=== PATIENT | female | born 1960 | race Caucasian/White ===

== ENCOUNTER 2016-07-14 10:43 | Emergency (ER) | END 2016-07-14 13:59 | disposition home or self-care (01) | CPT/HCPCS: 71020; 94640; 99283; A9270; J7613 ==

== ENCOUNTER 2017-02-05 10:23 | Outpatient (CLI) | payer OTHER ==
--- NOTE | 2017-02-06 15:23 | Mammography Report ---
DIGITAL SCREENING MAMMOGRAM: 02/05/2017 CLINICAL INDICATION: A 56-year-old, for screening. COMPARISON: 03/2015, 01/2013, 01/2012, 02/2008. TECHNIQUE: Routine CC and MLO projections were obtained of the breasts. Bilateral laterally exaggera virgen craniocaudal views. FINDINGS: Scattered fibroglandular tissue is present within the breasts. There are no dominant livan s, suspicious microcalcifications, or secondary signs of malignancy. In comparison to the previous st udies, there are no significant changes. ASSESSMENT: NO MAMMOGRAPHIC EVIDENCE OF MALIGNANCY. NO SIGNIFICANT INTERVAL CHANGES. RECOMMENDATION: Screening mammography is recommended annually. BIRADS category 1 - negative. STANDARD QUALIFYING STATEMENTS 1. This examination was reviewed with the aid of Computed-Aided Detection (CAD). 2. A negative or benign imaging report should not delay biopsy if clinically suspicious findings are present. Consider surgical consultation if warranted. More than 5% of cancers are not identified by i maging. 3. Dense breasts may obscure an underlying neoplasm. JOB #: [id number] EXT JOB #:[id number]
== END 2017-02-05 10:24 | disposition home or self-care (01) ==
LOC: DI.N 10:23
PROVIDERS: ATTEND Family Medicine
DX: Z12.31 Encounter for screening mammogram for malignant neoplasm of breast (principal)
CPT/HCPCS: 77067

== ENCOUNTER 2017-02-23 10:37 | Outpatient (CLI) | payer OTHER | END 2017-02-23 10:38 | disposition home or self-care (01) | LOC: LAB 10:37 | PROVIDERS: ATTEND Obstetrics & Gynecology | DX: Z11.3 Encounter for screening for infections with a predominantly sexual mode of transmission (principal) | CPT/HCPCS: 36415; 86780; 86803; 87340; 87389 ==

== ENCOUNTER 2017-04-07 09:25 | Day surgery (SDC) | payer OTHER ==
[2017-04-07] MEDS ORDERED: LACTATED RINGERS 1,000 ML IV ONE (09:35)
[2017-04-07] MEDS ORDERED: MIDAZOLAM 2 MG/2 ML VIAL IVP ONE (10:04)
[2017-04-07] MEDS ORDERED: fentaNYL 100 MCG/2 ML VIAL IVP ONE (10:04)
[2017-04-07] MEDS ORDERED: GLUCAGON 1 MG/ML VIAL IM ONE (10:04)
[2017-04-07 11:25] VITALS: BP 98/48
== END 2017-04-07 09:26 | disposition home or self-care (01) ==
LOC: SDS 09:25
PROVIDERS: ATTEND Surgery
PROC: 0DBP8ZX Excision of Rectum, Via Natural or Artificial Opening Endoscopic, Diagnostic (ICD-10-PCS; principal; 2017-04-07 10:30)
DX: D12.0 Benign neoplasm of cecum (principal); K62.1 Rectal polyp; Z80.0 Family history of malignant neoplasm of digestive organs; Z87.891 Personal history of nicotine dependence
CPT/HCPCS: 45384; J7120

== ENCOUNTER 2018-03-25 15:51 | Outpatient (CLI) | payer BC, OTHER ==
--- NOTE | 2018-03-26 09:21 | Mammography Report ---
Reason: SCREENING MAMMO Procedure Date: 03/25/2018 Accession Number: [id number] / [id number] Procedure: KATELIN - Screening Mammo Dig Bilat CPT Code: FULL RESULT: EXAM: Screening Mammo Dig Bilat DATE: 03/25/2018 4:09 PM CLINICAL HISTORY: Screening mammogram TECHNIQUE: Bilateral CC and MLO views were obtained. COMPARISON: Mammogram 02/05/2017 FINDINGS: There are scattered fibroglandular densities. No suspicious masses, clustered microcalcifications, or regions of architectural distortion are identified. IMPRESSION: BI-RADS Category 1. Negative. RECOMMENDATION: Routine annual screening unless otherwise clinically indicated. BIRADS CATEGORY 1: Negative STANDARD QUALIFYING STATEMENTS: 1. This examination was reviewed with the aid of Computer-Aided Detection (CAD). 2. A negative or benign imaging report should not delay biopsy if clinically suspicious findings are present. Consider surgical consultation if warrented. More than 5% of cancers are not identified by imaging. 3. Dense breasts may obscure an underlying neoplasm.
== END 2018-03-25 15:52 | disposition home or self-care (01) ==
LOC: DI 15:51
PROVIDERS: ATTEND Radiology Diagnostic Radiology
DX: Z12.31 Encounter for screening mammogram for malignant neoplasm of breast (principal)
CPT/HCPCS: 77067

== ENCOUNTER 2018-12-07 19:03 | Emergency (ER) | payer BC, OTHER ==
[2018-12-07 19:12] VITALS: BP 109/83
[2018-12-07] MEDS ORDERED: HYDROcod/ACETAM 5/325 MG TABLET PO STA (19:12)
[2018-12-07] MEDS ORDERED: BUFFERED LIDOCAINE 10 ML SYRINGE SUBQ STA (19:12)
[2018-12-07] MEDS ORDERED: TETANUS/DIPHTHERIA/PERTUSSIS 0.5 ML SYRINGE IM ONE (19:12)
--- NOTE | 2018-12-07 19:14 | ED Physician Documentation ---
PD HPI UPPER EXT INJURY - Stated complaint Stated Complaint: R PINKY INJ - Chief complaint Chief Complaint: Trauma Ext - History obtained from History obtained from: Patient - History of Present Illness Location: Other (Healthy 58-year-old woman was finishing up her run and tripped and fell. She injured her right pinky and left ribs. No head or neck injury. No loss of consciousness.) Review of Systems Constitutional: denies: Fever, Chills Cardiac: reports: Chest pain / pressure. denies: Palpitations Respiratory: reports: Reviewed and negative GI: reports: Reviewed and negative PD PAST MEDICAL HISTORY - Past Medical History Cardiovascular: None Respiratory: None Endocrine/Autoimmune: None GI: None : None HEENT: None Psych: None Musculoskeletal: None Derm: None - Past Surgical History General: Colonoscopy /CASING TIER: Tubal ligation, section HEENT: Tonsil/Adenoidectomy - Present Medications Home Medications: Ambulatory Orders Medication Instructions Recorded Confirmed SUMAtriptan [Imitrex] 25 mg PO ONCE 11/17/12 11/17/12 Zolpidem Tartrate [Ambien] 5 mg PO HS 11/17/12 11/17/12 guaiFENesin/CODEINE [Robitussin AC] 10 ml PO Q6H PRN #240 ml 07/14/16 Hydrocodone/Acetaminophen 1 - 2 each PO Q6H PRN #14 tablet 12/07/18 [Hydrocodon-Acetaminophen 5-325] - Allergies Allergies/Adverse Reactions: Allergies Allergy/AdvReac Type Severity Reaction Status Date / Time No Known Drug Allergies Allergy Verified 12/07/18 19:08 - Social History Does the pt smoke?: No Smoking Status: Never smoker Does the pt drink ETOH?: No Does the pt have substance abuse?: No - Immunizations Immunizations are current?: Yes PD ED PE NORMAL - Vitals Vital signs reviewed: Yes - General General: Alert and oriented X 3, No acute distress - HEENT HEENT: PERRL, EOMI - Neck Neck: Supple, no meningeal sign, No bony TTP - Cardiac Cardiac: RRR, No murmur - Respiratory Respiratory: No respiratory distress, Clear bilaterally - Abdomen Abdomen: Non tender - Extremities Extremities: Other (The right pinky is deformed medially consistent with a fracture of the proximal phalanx. Normal neurovascular function of the tip. There is a scrape on the right palm and left knee. No tenderness there. She has mild tenderness over the left lower anterior ribs.) - Neuro Neuro: Alert and oriented X 3, Normal speech Results - Vitals Vitals: Vital Signs - 24 hr 12/07/18 19:06 Temperature 36.8 C Heart Rate 84 Respiratory 16 Rate Blood Pressure 109/83 H O2 Saturation 97 Oxygen O2 Source Room air - Rads (name of study) L ribs and chest Radiology: EMP read contemporaneously (NAD) R hand Radiology: EMP read contemporaneously (Fracture of the proximal phalanx of the right fifth finger with some medial angulation. Note the x-ray was done prior to reduction.) Procedures - Splint (location) R pinky finger Splint applied by: Tech Type of splint: Metal foam finger splint Other: Patient tolerated well, No complications, Neurovascular intact - Reduction Body part reduced: Right, Finger Fracture or dislocation: Fracture dislocation Anesthesia: Digital block (with 2ml buffered lidocaine p hibiclens) Reduction aftercare: Alignment improved, Splint applied Departure - Departure Disposition: 01 Home, Self Care Clinical Impression: Finger fracture, right, Chest wall contusion Condition: Good Record reviewed to determine appropriate education?: Yes Instructions: ED Fx Finger Closed Follow-Up: [facility] [Provider Group] - Within 1 week Prescriptions: Hydrocodone/Acetaminophen [Hydrocodon-Acetaminophen 5-325] 1 - 2 each PO Q6H PRN #14 tablet PRN Reason: pain Comments: Keep the splint on and dry in the fingers elina taped as shown until you follow- up with orthopedic surgeons. Return for new or worsening symptoms. Do not drink or drive while taking narcotic pain medication. Note that many narcotic pain relievers also contain Tylenol/acetaminophen. Please ensure that your total dose of acetaminophen from all sources does not exceed 3 g (3000 mg) per day. You may get constipated while on this medication. Take a stool softener such as Colace twice a day while you are on it. Also add an mgvj-gqf-pdwqyfn laxative such as senna or MiraLAX on any day that you do not have a bowel movement. If you received a narcotic pain medication or sedative while in the emergency department, do not drive for the next 24 hours. Forms: Activity restrictions
--- NOTE | 2018-12-07 20:04 | XRAY Report ---
Reason: rib inj Procedure Date: 12/07/2018 Accession Number: [id number] / [id number] Procedure: XR - Ribs w/PA Chest LT CPT Code: FULL RESULT: EXAM: LEFT RIB RADIOGRAPHY EXAM DATE: 12/07/2018 07:38 PM. CLINICAL HISTORY: Fall. Left anterior rib injury. COMPARISON: CHEST 2 VIEW PA/LAT 07/14/2016 1:07 PM. TECHNIQUE: 1 view of the chest and 2 views of the ribs. FINDINGS: Bones: Normal. No fracture or bone lesion. Lungs: No focal opacities. No pneumothorax. No pleural effusions. Mediastinum: Heart and mediastinal contours are unremarkable. Other: None. IMPRESSION: Normal chest and rib radiography. RADIA
--- NOTE | 2018-12-07 20:07 | XRAY Report ---
Reason: hand inj Procedure Date: 12/07/2018 Accession Number: [id number] / [id number] Procedure: XR - Hand 2 View RT CPT Code: FULL RESULT: EXAM: RIGHT HAND RADIOGRAPHY EXAM DATE: 12/07/2018 07:38 PM. CLINICAL HISTORY: Fall. Right fifth digit pain and deformity. COMPARISON: None. TECHNIQUE: 3 views. FINDINGS: Bones: Mildly angulated mild displaced oblique shaft fracture of the fifth proximal phalanx. Joints: Normal. No subluxations. Soft Tissues: Associated soft tissue swelling. IMPRESSION: Mildly angulated mildly displaced oblique shaft fracture of the fifth proximal phalanx. RADIA
== END 2018-12-07 20:14 | disposition home or self-care (01) ==
LOC: ED 19:03
DX: S60.511A Abrasion of right hand, initial encounter (principal); S80.211A Abrasion, right knee, initial encounter; S62.616A Displaced fracture of proximal phalanx of right little finger, initial encounter for closed fracture; S20.211A Contusion of right front wall of thorax, initial encounter; W18.30XA Fall on same level, unspecified, initial encounter; Y93.02 Activity, running
CPT/HCPCS: 26725; 71101; 73120; 90471; 90715; 99283; A9270

== ENCOUNTER 2019-04-19 08:00 | Outpatient (CLI) | payer BC, OTHER ==
[2019-04-21 23:22] LABS: VARICELLA ZOSTER VIRUS IGM 0.13
== END 2019-04-19 23:59 | disposition home or self-care (01) ==
LOC: LAB.WCP 08:00
PROVIDERS: ATTEND Family Medicine
DX: R21 Rash and other nonspecific skin eruption (principal)
CPT/HCPCS: 36415; 86787

== ENCOUNTER → 2019-04-19 | Outpatient (CLI) | payer BC ==
--- NOTE | 2019-04-19 15:26 | XRAY Report ---
Reason: LOW BACK PAIN Procedure Date: 04/19/2019 Accession Number: [id number] / [id number] Procedure: WCP - Lumbar Spine 2 View CPT Code: FULL RESULT: EXAM: LUMBOSACRAL SPINE RADIOGRAPHY EXAM DATE: 04/19/2019 11:00 AM. CLINICAL HISTORY: Low back pain. COMPARISONS: CHEST 2 VIEW PA/LAT 07/14/2016 1:07 PM. TECHNIQUE: 3 views. FINDINGS: Alignment: Normal. No spondylolisthesis or scoliosis. Bones: Five lzp-aui-qnoizgx lumbar vertebral bodies are present. Minor compression deformity at T12 is suspected. Remainder of vertebral bodies appear relatively intact. Disks: There is minimal diffuse degenerative disk disease seen throughout the upper and lower aspects of the lumbar spine. Facets: There is minimal diffuse degenerative facet disease seen throughout the mid and lower aspect of the lumbar spine. Sacroiliac Joints: Unremarkable. Soft Tissues: Normal. The visualized bowel gas pattern is normal. IMPRESSION: Age-indeterminate minor T12 anterior compression fracture deformities suspected. RADIA
== END ==
LOC: DI.WCP 08:00 → EDSTATUS 12:31
PROVIDERS: ATTEND Family Medicine
DX: M54.5 Low back pain (principal)
CPT/HCPCS: 72100

== ENCOUNTER 2019-05-02 17:00 | Outpatient (CLI) | payer BC ==
--- NOTE | 2019-05-03 06:48 | CT Report ---
Reason: WEDGE COMPRESSION FRACTURE OF THORACIC VERTEBRA Procedure Date: 05/02/2019 Accession Number: [id number] / [id number] Procedure: CT - THORACIC SPINE WO CPT Code: FULL RESULT: EXAM: CT THORACIC SPINE WITHOUT CONTRAST EXAM DATE: 05/02/2019 05:31 PM. CLINICAL HISTORY: 59-year-old female. WEDGE COMPRESSION FRACTURE OF THORACIC VERTEBRA. COMPARISONS: Radiograph lumbar spine 04/19/2019 TECHNIQUE: Thin-section axial images were acquired of the thoracic spine from C7 to L1 without contrast. Post-processing: Coronal and sagittal reformats. Other: None. In accordance with CT protocol optimization, one or more of the following dose reduction techniques were utilized for this exam: automated exposure control, adjustment of mA and/or KV based on patient size, or use of iterative reconstructive technique. FINDINGS: Alignment: No scoliosis or spondylolisthesis. Bones: The bones are diffusely osteopenic. Redemonstration superior endplate compression fracture of the T12 vertebral body with maximal height loss centrally of 36%. No CT evidence of additional thoracic level fractures. Schmorl's nodes are seen involving the inferior endplate of T6, inferior endplate of T7, and inferior endplate of T8. Superior endplate of L2 demonstrates mild depression (series 7 image 46), may represent developing Schmorl's node versus small compression fracture. No significant bony central canal foraminal narrowing at any visualized level. Musculature: Normal. No fatty atrophy. Other: The visualized lungs, mediastinum, and abdominal cavity are unremarkable. IMPRESSION: 1. The bones are diffusely osteopenic. 2. Redemonstration superior endplate compression fracture of the T12 vertebral body with maximal height loss centrally of 36%. No CT evidence of additional thoracic level fractures. 3. Schmorl's nodes are seen involving the inferior endplate of T6, inferior endplate of T7, and inferior endplate of T8. 4. Superior endplate of L2 demonstrates mild depression (series 7 image 46), may represent developing Schmorl's node versus small developing compression fracture. 5. No significant bony central canal foraminal narrowing at any visualized level. RADIA
== END 2019-05-02 17:01 | disposition home or self-care (01) ==
LOC: DI 17:00
PROVIDERS: ATTEND Family Medicine
DX: M48.54XA Collapsed vertebra, not elsewhere classified, thoracic region, initial encounter for fracture (principal); M85.88 Other specified disorders of bone density and structure, other site; M51.44 Schmorl's nodes, thoracic region
CPT/HCPCS: 72128

== ENCOUNTER 2019-09-07 15:06 | Outpatient (CLI) | payer OTHER ==
--- NOTE | 2019-09-20 15:24 | Mammography Report ---
Reason: ROUTINE MAMMO Procedure Date: 09/07/2019 Accession Number: [id number] / [id number] Procedure: MGN - Screening Mammo w/Eloy CPT Code: Final Report FULL RESULT: EXAM: Screening Mammo w/Eloy DATE: 09/07/2019 3:59 PM CLINICAL HISTORY: Screening encounter. TECHNIQUE: (B) - Bilateral CC and MLO views were obtained. COMPARISON: 03/25/2018 through 01/19/2013. PARENCHYMAL PATTERN: (A) - The breast(s) demonstrate(s) scattered fibroglandular densities. FINDINGS: There are no suspicious masses, calcifications, or areas of distortion. IMPRESSION: Negative examination. BI-RADS category 1. RECOMMENDATION: (ANNUAL) - Recommend routine annual screening mammography. BI-RADS CATEGORY: (1) - Negative. STANDARD QUALIFYING STATEMENTS: 1. This examination was not reviewed with the aid of Computer-Aided Detection (CAD). 2. A negative or benign imaging report should not preclude biopsy if clinically suspicious findings are present. 3. Dense breasts may obscure an underlying neoplasm. 4. This examination was reviewed with the aid of 3D breast imaging (tomosynthesis).
== END 2019-09-07 15:07 | disposition home or self-care (01) ==
LOC: DI.N 15:06
DX: Z12.31 Encounter for screening mammogram for malignant neoplasm of breast (principal)
CPT/HCPCS: 77063; 77067

== ENCOUNTER 2019-10-27 10:47 | Outpatient (CLI) | payer OTHER ==
--- NOTE | 2019-10-27 11:29 | XRAY Report ---
Reason: ACUTE LOW BACK PAIN Procedure Date: 10/27/2019 Accession Number: [id number] / [id number] Procedure: WCP - Lumbar Spine 2 View CPT Code: Final Report FULL RESULT: EXAM: LUMBOSACRAL SPINE RADIOGRAPHY EXAM DATE: 10/27/2019 10:47 AM. CLINICAL HISTORY: ACUTE LOW BACK PAIN. COMPARISONS: LUMBAR SPINE 2 VIEW 04/19/2019 10:39 AM. TECHNIQUE: 3 views. FINDINGS: Alignment: Normal. No spondylolisthesis or scoliosis. Bones: Five gvy-hld-cfxyvcx lumbar vertebral bodies are present. Vertebral deformity of T12 with 20% anterior height loss, similar to prior study. Disks: Normal. Disk heights are maintained. Facets: Mild facet hypertrophy at L3-L4. Moderate facet hypertrophy at L4-L5 and L5-S1. Sacroiliac Joints: Unremarkable. Soft Tissues: Normal. The visualized bowel gas pattern is normal. IMPRESSION: 1. No radiographic evidence of acute abnormality. 2. Remote T12 compression fracture. 3. Moderate lower lumbar facet degenerative changes RADIA
--- NOTE | 2019-10-27 13:05 | XRAY Report ---
Reason: THORACIC VERTEBRA WEDGE COMPRESSION FRACTURE Procedure Date: 10/27/2019 Accession Number: [id number] / [id number] Procedure: WCP - Thoracic Spine 2 View CPT Code: Final Report FULL RESULT: EXAM: THORACIC SPINE RADIOGRAPHY EXAM DATE: 10/27/2019 10:47 AM. CLINICAL HISTORY: Thoracic vertebra wedge compression fracture. COMPARISON: THORACIC SPINE W/O 05/02/2019 5:30 PM. TECHNIQUE: 2 views. FINDINGS: Alignment: Normal. No spondylolisthesis or scoliosis. Stable appearance of a grade 2 superior wedge compression fracture at T12. No new thoracic vertebral body compressive fractures detected. No pathologic subluxation. Mild disk space narrowing in the mid thoracic spine. Stable anterior vertebral body bony bridging. No significant scoliosis or hyperkyphosis. IMPRESSION: Stable appearance of wedge compression fracture at T12. No new compressive fractures detected. RADIA
== END 2019-10-27 23:59 | disposition home or self-care (01) ==
LOC: DI.WCP 10:47
PROVIDERS: ATTEND Family Medicine
DX: S22.000D Wedge compression fracture of unspecified thoracic vertebra, subsequent encounter for fracture with routine healing (principal); M47.816 Spondylosis without myelopathy or radiculopathy, lumbar region; M47.817 Spondylosis without myelopathy or radiculopathy, lumbosacral region
CPT/HCPCS: 72070; 72100

== ENCOUNTER 2020-11-21 08:00 | Outpatient (CLI) | payer OTHER ==
[2020-11-21 12:18] LABS: BASOPHILS # (AUTO) 0.1 10^3/uL (0.0-0.1); BASOPHILS % (AUTO) 1.7 %; EOSINOPHILS # (AUTO) 0.2 10^3/uL (0.0-0.7); EOSINOPHILS % (AUTO) 4.1 %; HCT - HEMATOCRIT 39.4 % (37.0-47.0); HGB - HEMOGLOBIN 12.7 g/dL (12.0-16.0); LYMPHOCYTES # (AUTO) 1.7 10^3/uL (1.5-3.5); LYMPHOCYTES % (AUTO) 40.1 %; MEAN CORPUSCULAR HGB CONC 32.2 g/dL (32.0-36.0); MEAN CORPUSCULAR VOLUME 96.1 fL (81.0-99.0); MEAN PLATELET VOLUME 12.1 fL (7.9-10.8); MONOCYTES # (AUTO) 0.3 10^3/uL (0.0-1.0); MONOCYTES % (AUTO) 7.1 %; NEUTROPHILS # (AUTO) 1.9 10^3/uL (1.5-6.6); NEUTROPHILS % (AUTO) 46.8 %; PLT - PLATELET COUNT 268 10^3/uL (130-450); RED CELL DISTRIBUTION WIDTH 13.6 % (12.0-15.0); WHITE BLOOD COUNT 4.1 x10^3/uL (4.8-10.8)
[2020-11-21 12:29] LABS: ALBUMIN 4.3 g/dL (3.2-5.5); ALBUMIN/GLOBULIN RATIO 1.5 (1.0-2.2); ALKALINE PHOSPHATASE 67 IU/L (42-121); ALT ALANINE AMINOTRANSFERASE 18 IU/L (10-60); AST ASPARTATE AMINOTRANSFERASE 30 IU/L (10-42); BILIRUBIN,TOTAL 0.7 mg/dL (0.2-1.0); BUN - BLOOD UREA NITROGEN 18 mg/dL (6-20); CALCIUM 9.7 mg/dL (8.5-10.3); CARBON DIOXIDE - CO2 29 mmol/L (21-32); CHLORIDE 104 mmol/L (101-111); CHOL/HDL RATIO 2.5 (<4.4); CHOLESTEROL 209 mg/dL; CREATININE 0.8 mg/dL (0.4-1.0); GFR - MDRD 73 (>89); GLUCOSE 93 mg/dL (70-100); HDL CHOLESTEROL 84 mg/dL; LDL CHOLESTEROL,CALCULATED 116 mg/dL; LDL/HDL RATIO 1.4 (<4.4); POTASSIUM 4.1 mmol/L (3.5-5.0); SODIUM 142 mmol/L (135-145); TOTAL PROTEIN 7.1 g/dL (6.7-8.2); TRIGLYCERIDES 44 mg/dL; VLDL CHOLESTEROL 9 mg/dL
[2020-11-21 12:36] LABS: THYROID STIMULATING HORMONE 1.72 uIU/mL (0.34-5.60)
== END 2020-11-21 23:59 | disposition home or self-care (01) ==
LOC: LAB.WCP 08:00
PROVIDERS: ATTEND Family Medicine
DX: Z00.00 Encounter for general adult medical examination without abnormal findings (principal)
CPT/HCPCS: 36415; 80053; 80061; 83721; 84443; 85025

== ENCOUNTER 2021-06-01 08:00 | Outpatient (CLI) | payer OTHER | END 2021-06-01 23:59 | disposition home or self-care (01) | LOC: LAB.N 08:00 | PROVIDERS: ATTEND Family Medicine | DX: R07.0 Pain in throat (principal); Z20.822 Contact with and (suspected) exposure to COVID-19 | CPT/HCPCS: 87070 ==

== ENCOUNTER 2022-02-11 09:15 | Outpatient (CLI) | payer OTHER ==
--- NOTE | 2022-02-12 09:51 | Mammography Report ---
BILATERAL DIGITAL SCREENING MAMMOGRAM 3D/2D: 02/11/2022 CLINICAL: Routine screening. Comparison is made to exams dated: 09/07/2019 mammogram, 03/25/2018 mammogram, 02/05/2017 mammogram, 03/14/2015 mammogram, 01/22/2013 mammogram, and 01/19/2013 mammogram - [facility]. There are scattered fibroglandular elements in both breasts. No significant masses, calcifications, or other findings are seen in either breast. There has been no significant interval change. IMPRESSION: NEGATIVE There is no mammographic evidence of malignancy. A 1 year screening mammogram is recommended. Based on the Tyrer Cuzick model (a risk assessment model) the patients lifetime risk is 9.5% and her 10 year risk is 4.0%. According to the ACR, ACS, and NCCN guidelines, an annual breast MRI exam timur g with mammogram is recommended if the patients lifetime risk is 20% or greater. This exam was interpreted at Station ID: [id number]. NOTE: For mammograms, a report in lay terms will be sent to the patient. Approximately 15% of breast malignancies will not be visualized mammographically. In the management of a palpable breast mass, a negative mammogram must not discourage biopsy of a clinically suspicious lesion. Electronically Signed By: Brooke carrasco/sari:02/11/2022 12:13:26 ACR BI-RADS Category 1: Negative 3341F PARENCHYMAL PATTERN: (A) - The breast(s) demonstrate(s) scattered fibroglandular densities. BI-RADS CATEGORY: (1) - 1 RECOMMENDATION: (ANNUAL) - Recommend routine annual screening mammography. [id number] 1 year screening LATERALITY: (B)
== END 2022-02-11 09:16 | disposition home or self-care (01) ==
LOC: DI.N 09:15
PROVIDERS: ATTEND Physician Assistant
DX: Z12.31 Encounter for screening mammogram for malignant neoplasm of breast (principal)

== ENCOUNTER 2022-07-11 08:28 | Day surgery (SDC) | payer OTHER ==
--- NOTE | 2022-07-11 07:09 | ANESTHESIA ---
Pre-Anesthesia VS, & Labs - Diagnosis screening - Procedure colonoscopy Height: 5 ft 7 in - NPO >8 hours Last Fluid Intake: am prep - Is Patient ?: No - Lab Results Lab results reviewed: Yes Home Medications and Allergies SUMAtriptan [Imitrex] 25 mg PO ONCE PRN 11/17/12 Zolpidem Tartrate [Ambien] 5 mg PO HS PRN 11/17/12 Allergies/Adverse Reactions: Allergies Allergy/AdvReac Type Severity Reaction Status Date / Time No Known Drug Allergies Allergy Verified 12/07/18 19:08 Anes History & Medical History - Anesthetic History Anesthesia Complications: reports: No previous complications Family history of Anesthesia Complications: Denies Family history of Malignant Hyperthermia: Denies - Medical History Cardiovascular: reports: None Pulmonary: reports: None Gastrointestinal: reports: None Urinary: reports: None Musculoskeletal: reports: None Endocrine/Autoimmune: reports: None Skin: reports: None Smoking Status: Never smoker Psychosocial: reports: No issues indicated History of Cancer?: No - Surgical History General: reports: Colonoscopy Eyes Ears Nose Throat (EENT): reports: Tonsil/Adenoidectomy Gynecologic: reports: Tubal ligation, section Exam General: Alert, Oriented x3, Cooperative Mouth Openin Fingerbreadth Neck Mobility: Normal Mallampati classification: II Thyromental Distance: 4-6 cm Respiratory: Lungs clear, Normal breath sounds Cardiovascular: Regular rate Neurological: Normal speech Mental/Cognitive Status: Alert/Oriented X3, Normal for patient Cognitive Status: Within normal limits Plan Anesthesia Type: Total IV Consent for Procedure(s) Verified and Reviewed: Yes Code Status: Attempt Resuscitation ASA classification: 2-Mild systemic disease Is this case an emergency?: No
[~2022-07-11 08:28] MED LIST: MIDAZOLAM 2 MG/2 ML VIAL ONE; PROPOFOL 500 MG/50 ML 500 MG/50 ML VIAL ONE
[2022-07-11] MEDS ORDERED: LACTATED RINGERS 1,000 ML IV ONE ×2 (08:30→09:54)
[2022-07-11 10:28] VITALS: BP 97/63
--- NOTE | 2022-07-11 10:58 | ANESTHESIA POST OP EVALUATION ---
Anesthesia Post Eval - Post Anesthesia Eval Vitals: Last Vital Signs Temp 36.6 C 07/11/22 10:27 Pulse 50 L 07/11/22 10:27 Resp 16 07/11/22 10:27 BP 97/63 07/11/22 10:27 Pulse Ox 99 07/11/22 10:27 O2 Flow Rate CV Function Including HR & BP: Stable Pain Control: Satisfactory Nausea & Vomiting: Negative Mental Status: Baseline Respiratory Status: Airway Patent Hydration Status: Satisfactory Anesthesia Complications: None
== END 2022-07-11 08:29 | disposition home or self-care (01) ==
LOC: SDS 08:28
PROVIDERS: ATTEND Surgery
PROC: 0DBN8ZX Excision of Sigmoid Colon, Via Natural or Artificial Opening Endoscopic, Diagnostic (ICD-10-PCS; 2022-07-11)
PROC: 0DBH8ZX Excision of Cecum, Via Natural or Artificial Opening Endoscopic, Diagnostic (ICD-10-PCS; principal; 2022-07-11 09:30)
DX: D12.0 Benign neoplasm of cecum (principal); D12.5 Benign neoplasm of sigmoid colon; Z80.0 Family history of malignant neoplasm of digestive organs
CPT/HCPCS: 45380; 45385; J7120

== ENCOUNTER 2023-02-17 07:14 | Outpatient (CLI) | payer OTHER ==
[2023-02-17 12:36] LABS: BASOPHILS # (AUTO) 0.1 10^3/uL (0.0-0.1); BASOPHILS % (AUTO) 1.3 %; EOSINOPHILS # (AUTO) 0.3 10^3/uL (0.0-0.7); EOSINOPHILS % (AUTO) 5.5 %; HGB - HEMOGLOBIN 12.9 g/dL (12.0-16.0); LYMPHOCYTES # (AUTO) 1.9 10^3/uL (1.5-3.5); LYMPHOCYTES % (AUTO) 35.2 %; MEAN CORPUSCULAR HEMOGLOBIN 30.7 pg (27.0-31.0); MEAN CORPUSCULAR HGB CONC 31.5 g/dL (32.0-36.0); MEAN CORPUSCULAR VOLUME 97.6 fL (81.0-99.0); MEAN PLATELET VOLUME 12.5 fL (7.9-10.8); MONOCYTES # (AUTO) 0.3 10^3/uL (0.0-1.0); MONOCYTES % (AUTO) 6.2 %; NEUTROPHILS # (AUTO) 2.7 10^3/uL (1.5-6.6); NEUTROPHILS % (AUTO) 51.8 %; PLT - PLATELET COUNT 245 10^3/uL (130-450); RED CELL DISTRIBUTION WIDTH 13.4 % (12.0-15.0); WHITE BLOOD COUNT 5.3 x10^3/uL (4.8-10.8)
[2023-02-17 13:01] LABS: ALBUMIN 4.3 g/dL (3.2-5.5); ALBUMIN/GLOBULIN RATIO 1.6 (1.0-2.2); ALKALINE PHOSPHATASE 72 IU/L (42-121); ALT ALANINE AMINOTRANSFERASE 15 IU/L (10-60); AST ASPARTATE AMINOTRANSFERASE 26 IU/L (10-42); BILIRUBIN,TOTAL 0.5 mg/dL (0.2-1.0); BUN - BLOOD UREA NITROGEN 18 mg/dL (6-20); CALCIUM 9.6 mg/dL (8.5-10.3); CARBON DIOXIDE - CO2 32 mmol/L (21-32); CHLORIDE 106 mmol/L (101-111); CHOL/HDL RATIO 2.1 (<4.4); CHOLESTEROL 171 mg/dL; CREATININE 0.7 mg/dL (0.6-1.3); GFR - MDRD 85 (>89); GLUCOSE 90 mg/dL (74-104); HDL CHOLESTEROL 83 mg/dL; LDL CHOLESTEROL,CALCULATED 77 mg/dL; LDL/HDL RATIO 0.9 (<4.4); SODIUM 141 mmol/L (135-145); TRIGLYCERIDES 57 mg/dL (48-352); VLDL CHOLESTEROL 11 mg/dL
[2023-02-17 13:09] LABS: THYROID STIMULATING HORMONE 3.48 uIU/mL (0.34-5.60)
== END 2023-02-17 07:15 | disposition home or self-care (01) ==
LOC: LAB.N 07:14
PROVIDERS: ATTEND Physician Assistant
DX: Z13.9 Encounter for screening, unspecified (principal); Z12.11 Encounter for screening for malignant neoplasm of colon
CPT/HCPCS: 36415; 80053; 80061; 83721; 84443; 85025

== ENCOUNTER 2023-02-26 15:21 | Outpatient (CLI) | payer OTHER ==
--- NOTE | 2023-02-26 19:34 | DEXA Report ---
PROCEDURE: Dexa Spine and/or Hip INDICATIONS: OSTEOPOROSIS TECHNIQUE: Dual energy x-ray absorptiometry (DXA) was performed on a [employer] System. Regions measur ed are the AP Spine, femoral neck, and if needed forearm. COMPARISON: None FINDINGS: Lumbar Spine: Bone Mineral Density 0.882 g/cm/cm,T score -2.5. Osteoporosis Left Femoral Neck: Bone Mineral Density 0.681 g/cm/cm, T score -2.6. Osteoporosis Left Hip: Bone Mineral Density 0.736 g/cm/cm,T score -2.2. Osteopenia (T score greater or equal to -1.0: NORMAL) (T score from -1.1 to -2.4: OSTEOPENIA) (T score less than or equal to -2.5 to: OSTEOPOROSIS) Impression: By WHO criteria, this patient has osteoporosis. Patients with diagnosis of osteoporosis or osteopenia should have regular bone mineral density assess ment. For those eligible for Medicare, routine testing is allowed once every 2 years. Testing frequ ency can be increased for patients who have rapidly progressing disease or for those who are receivin g medical therapy to restore bone mass. Reviewed by: Mario Ledesma MD on 02/26/2023 6:33 PM [facility]YS[facility] Approved by: Mario Ledesma MD on 02/26/2023 6:33 PM ALYS[facility] Station ID: [id number]
== END 2023-02-26 15:22 | disposition home or self-care (01) ==
LOC: DI 15:21
PROVIDERS: ATTEND Physician Assistant
DX: M81.0 Age-related osteoporosis without current pathological fracture (principal)

== ENCOUNTER 2024-01-25 10:39 | Outpatient (CLI) | payer OTHER ==
[2024-01-25 18:03] LABS: BASOPHILS # (AUTO) 0.1 10^3/uL (0.0-0.1); BASOPHILS % (AUTO) 1.4 %; EOSINOPHILS # (AUTO) 0.3 10^3/uL (0.0-0.7); EOSINOPHILS % (AUTO) 5.9 %; HCT - HEMATOCRIT 41.1 % (37.0-47.0); LYMPHOCYTES # (AUTO) 1.9 10^3/uL (1.5-3.5); LYMPHOCYTES % (AUTO) 38.5 %; MEAN CORPUSCULAR HEMOGLOBIN 30.3 pg (27.0-31.0); MEAN CORPUSCULAR HGB CONC 31.6 g/dL (32.0-36.0); MEAN CORPUSCULAR VOLUME 95.8 fL (81.0-99.0); MEAN PLATELET VOLUME 11.8 fL (7.9-10.8); MONOCYTES # (AUTO) 0.3 10^3/uL (0.0-1.0); MONOCYTES % (AUTO) 6.1 %; NEUTROPHILS # (AUTO) 2.4 10^3/uL (1.5-6.6); NEUTROPHILS % (AUTO) 47.9 %; PLT - PLATELET COUNT 269 10^3/uL (130-450); RED BLOOD COUNT 4.29 10^6/uL (4.20-5.40); RED CELL DISTRIBUTION WIDTH 13.2 % (12.0-15.0); WHITE BLOOD COUNT 4.9 x10^3/uL (4.8-10.8)
[2024-01-25 18:11] LABS: ALBUMIN 4.6 g/dL (3.2-5.5); ALBUMIN/GLOBULIN RATIO 1.6 (1.0-2.2); ALKALINE PHOSPHATASE 70 IU/L (42-121); ALT ALANINE AMINOTRANSFERASE 17 IU/L (10-60); AST ASPARTATE AMINOTRANSFERASE 28 IU/L (10-42); BILIRUBIN,TOTAL 0.4 mg/dL (0.2-1.0); BUN - BLOOD UREA NITROGEN 12 mg/dL (6-20); CALCIUM 9.7 mg/dL (8.5-10.3); CARBON DIOXIDE - CO2 31 mmol/L (21-32); CHLORIDE 106 mmol/L (101-111); CHOL/HDL RATIO 2.4 (<4.4); CHOLESTEROL 197 mg/dL; CREATININE 0.7 mg/dL (0.6-1.3); GFR - MDRD 85 (>89); GLUCOSE 84 mg/dL (74-104); HDL CHOLESTEROL 82 mg/dL; LDL CHOLESTEROL,CALCULATED 103 mg/dL; LDL/HDL RATIO 1.3 (<4.4); POTASSIUM 4.7 mmol/L (3.5-4.5); SODIUM 142 mmol/L (135-145); TOTAL PROTEIN 7.5 g/dL (6.4-8.9); TRIGLYCERIDES 60 mg/dL; VLDL CHOLESTEROL 12 mg/dL
[2024-01-25 18:22] LABS: THYROID STIMULATING HORMONE 1.73 uIU/mL (0.34-5.60)
== END 2024-01-25 10:40 | disposition home or self-care (01) ==
LOC: LAB.N 10:39
PROVIDERS: ATTEND Physician Assistant
DX: Z12.11 Encounter for screening for malignant neoplasm of colon (principal)
CPT/HCPCS: 36415; 80053; 80061; 83721; 84443; 85025

== ENCOUNTER 2024-01-25 10:57 | Outpatient (CLI) | payer OTHER ==
--- NOTE | 2024-01-26 09:10 | Mammography Report ---
BILATERAL DIGITAL SCREENING MAMMOGRAM 3D/2D: 01/25/2024 CLINICAL: Routine screening. Comparison is made to exams dated: 02/11/2022 mammogram, 09/07/2019 mammogram, 03/25/2018 mammogram, 01/11 mammogram, 03/14/2015 mammogram, and 01/22/2013 mammogram - [facility]. There are scattered areas of fibroglandular density in both breasts (category b / 25%-50% glandular t issue). No significant masses, calcifications, or other findings are seen in either breast. There has been no significant interval change. IMPRESSION: NEGATIVE There is no mammographic evidence of malignancy. A 1 year screening mammogram is recommended. Based on the Tyrer Cuzick model (a risk assessment model) the patient's lifetime risk is 8.9% and her 10 year risk is 4.0%. According to the ACR, ACS, and NCCN guidelines, an annual breast MRI exam timur g with mammogram is recommended if the patient's lifetime risk is 20% or greater. This exam was interpreted at Station ID: [id number]. NOTE: For mammograms, a report in lay terms will be sent to the patient. Approximately 15% of breast malignancies will not be visualized mammographically. In the management of a palpable breast mass, a negative mammogram must not discourage biopsy of a clinically suspicious lesion. Electronically Signed By: Francesco farris/sari:01/25/2024 11:37:37 letter sent: No_Letter ACR BI-RADS Category 1: Negative 3341F PARENCHYMAL PATTERN: (A) - The breast(s) demonstrate(s) scattered fibroglandular densities. BI-RADS CATEGORY: (1) - 1 RECOMMENDATION: (ANNUAL) - Recommend routine annual screening mammography. [id number] 1 year screening LATERALITY: (B)
== END 2024-01-25 10:58 | disposition home or self-care (01) ==
LOC: DI.N 10:57
DX: Z12.31 Encounter for screening mammogram for malignant neoplasm of breast (principal); R92.323 Mammographic fibroglandular density, bilateral breasts

== ENCOUNTER 2024-03-31 08:05 | Day surgery (SDC) | payer OTHER ==
[2024-03-31] MEDS: LACTATED RINGERS 1,000 ML IV ONE ×2 (08:08→09:39)
[2024-03-31] MEDS ORDERED: PROPOFOL 500 MG/50 ML 500 MG/50 ML VIAL ONE (08:13)
[2024-03-31] MEDS ORDERED: LIDOCAINE-MPF 2% 5 ML VIAL ONE (08:13)
--- NOTE | 2024-03-31 08:17 | ANESTHESIA ---
Pre-Anesthesia VS, & Labs - Diagnosis family history of colon cancer - Procedure colonoscopy Height: 5 ft 7 in Weight (kg): 70.1 kg Body Mass Index: 24.2 BMI Classification: Normal - NPO Other (prep ad sirected) - Is Patient ?: No Home Medications and Allergies SUMAtriptan [Imitrex] 25 mg PO ONCE PRN 11/17/12 Zolpidem Tartrate [Ambien] 5 mg PO HS PRN 11/17/12 Allergies/Adverse Reactions: Allergies Allergy/AdvReac Type Severity Reaction Status Date / Time No Known Drug Allergies Allergy Verified 12/07/18 19:08 Anes History & Medical History - Anesthetic History Anesthesia Complications: reports: No previous complications - Medical History Cardiovascular: reports: None Pulmonary: reports: None Gastrointestinal: reports: None Urinary: reports: None Musculoskeletal: reports: None Endocrine/Autoimmune: reports: None Skin: reports: None Smoking Status: Never smoker - Surgical History General: reports: Colonoscopy Eyes Ears Nose Throat (EENT): reports: Tonsil/Adenoidectomy Gynecologic: reports: Tubal ligation, section Exam General: Alert, Oriented x3 Dental: WNL Mouth Opening: Greater than 4 Fingerbreadths Neck Mobility: Normal Mallampati classification: I Thyromental Distance: greater than 6 cm Respiratory: Lungs clear Cardiovascular: Regular rate Plan Anesthesia Type: Total IV Consent for Procedure(s) Verified and Reviewed: Yes Code Status: Attempt Resuscitation ASA classification: 2-Mild systemic disease Is this case an emergency?: No
--- NOTE | 2024-03-31 08:52 | HISTORY & PHYSICAL EXAMINATION ---
Chief Complaint - Chief Complaint Chief Complaint: here for colonoscopy History of Present Illness - History Obtained From Records Reviewed: yes History obtained from: pt Exam Limitations: none - History of Present Illness HPI Comment/Other: history 15 mm flat cecal polyp removed piecemeal 2 years ago and family hx colon ca, father. no gi symptoms and recent labs normal. 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: reports: Tubal ligation, section HEENT: reports: Tonsil/Adenoidectomy Meds/Allgy - Home Medications Home Medications: Ambulatory Orders Medication Instructions Recorded Confirmed SUMAtriptan [Imitrex] 25 mg PO ONCE PRN 11/17/12 03/31/24 Zolpidem Tartrate [Ambien] 5 mg PO HS PRN 11/17/12 03/31/24 - Allergies Allergies/Adverse Reactions: Allergies Allergy/AdvReac Type Severity Reaction Status Date / Time No Known Drug Allergies Allergy Verified 12/07/18 19:08 Review of Systems - Other Findings Other Findings: 10 pt ros as above otherwise unremarkable Exam - Vital Signs Vital Signs: Vital Signs x48h Temp Pulse Resp BP Pulse Ox 03/31/24 08:12 36 C L 42 L 16 132/71 H 100 - Physical Exam General Appearance: positive: No acute distress, Alert Eyes Bilateral: positive: PERRL, EOMI ENT: positive: No signs of dehydration Neck: positive: No JVD, Trachea midline Respiratory: positive: No respiratory distress Cardiovascular: positive: Regular rate & rhythm Abdomen: positive: No distention Neurologic/Psychiatric: positive: Oriented x3 Conclusion/Plan - Problem List (1) Colon cancer screening Conclusion/Plan: plan colonoscopy. parq held and consent obtained
[2024-03-31] MEDS ORDERED: GLYCOPYRROLATE 1 MG/5 ML VIAL ONE (09:00)
[2024-03-31 10:09] VITALS: BP 121/76; O2SAT 100
--- NOTE | 2024-03-31 11:11 | ANESTHESIA POST OP EVALUATION ---
Anesthesia Post Eval - Post Anesthesia Eval Vitals: Last Vital Signs Temp 36.2 C L 03/31/24 10:05 Pulse 52 L 03/31/24 10:05 Resp 14 03/31/24 10:05 BP 121/76 03/31/24 10:05 Pulse Ox 100 03/31/24 10:05 O2 Flow Rate CV Function Including HR & BP: Stable Pain Control: Satisfactory Nausea & Vomiting: Negative Mental Status: Baseline Respiratory Status: Airway Patent Hydration Status: Satisfactory Anesthesia Complications: None
== END 2024-03-31 08:06 | disposition home or self-care (01) ==
LOC: SDS 08:05
PROVIDERS: ATTEND Surgery
DX: Z12.11 Encounter for screening for malignant neoplasm of colon (principal); Z80.0 Family history of malignant neoplasm of digestive organs; Z86.010 Personal history of colon polyps
CPT/HCPCS: 45378; J7120